=== PATIENT | male | born 2000 | race American Indian/Alaskan Native ===

== ENCOUNTER 2023-05-14 21:06 | Emergency (ER) | payer SELFPAY | END 2023-05-14 21:56 | disposition home or self-care (01) | LOC: JD.ED 21:06 | DX: S63.650A Sprain of metacarpophalangeal joint of right index finger, initial encounter (principal); Z86.16 Personal history of COVID-19; Z91.048 Other nonmedicinal substance allergy status; W21.05XA Struck by basketball, initial encounter | CPT/HCPCS: 73130-26-RT; 73130-RT; 99283 ==

== ENCOUNTER 2025-03-01 21:40 | Emergency (ER) | payer OTHER | END 2025-03-02 01:19 | disposition home or self-care (01) | LOC: JD.ED 21:40 | DX: S90.01XA Contusion of right ankle, initial encounter (principal); J45.909 Unspecified asthma, uncomplicated; Z91.048 Other nonmedicinal substance allergy status; W21.05XA Struck by basketball, initial encounter; Y93.67 Activity, basketball | CPT/HCPCS: 73590-26-RT; 73590-RT; 73610-26-RT; 73610-RT; 93971-26-RT; 93971-RT; 99283; 99284 ==